=== PATIENT | male | born 1945 | race Caucasian/White ===

== ENCOUNTER 2017-12-28 01:54 | Emergency (ER) | payer MEDICARE, OTHER ==
[2017-12-28 02:19] LABS: Bilirubin Negative (Negative); Blood, Urine Large (Negative); Clarity CLEAR (Clear); Glucose, Urine (Dipstick) Negative (Negative); Leukocyte Negative (Negative); Nitrite Negative (Negative); Protein, Urine (Dipstick) Negative (Neg-Trace); Specific Gravity, Urine 1.021 (1.002-1.036)
[2017-12-28 02:21] LABS: Bacteria/HPF None Seen HPF (None Seen); Hyaline Casts/LPF 0-3 HYALINE CAST LPF (0-3 Hyaline); Pathc Cast-AUWi Flag 0.29 (0-2.49); RBC/HPF GREATER THAN 50-TNTC HPF (0-3); Squamous Epithelial None Seen HPF (0-3); WBC/HPF 0-3 HPF (0-3)
[2017-12-28 02:29] LABS: #Basophils 0.1 thou/uL (0.0-0.2); #Eosinphils 0.3 thou/uL (0.0-0.7); #Lymphocytes 2.4 thou/uL (1.20-3.40); #Monocytes 0.8 thou/uL (0.11-0.59); #Neutrophils 6.1 thou/uL (1.40-6.50); %Basophils 0.6 % (0.0-1.0); %Eosinophils 3.2 % (0.0-10.0); %Lymphocytes 24.5 % (21.0-51.0); %Monocytes 8.3 % (0.0-10.0); %Neutrophils 63.4 % (42.0-75.0); Hemoglobin 16.7 g/dL (14.0-18.0); Mean Corpuscular HGB CONC 32.7 g/dL (32.0-36.0); Mean Corpuscular Hemoglobin 31.1 pg (27.0-31.0); Mean Corpuscular Volume 95.4 fl (80.0-94.0); Mean Platelet Volume 7.8 fL (7.4-10.4); Platelet Count 209 thou/uL (130-400); RBC Distribution Width 12.1 % (11.5-14.5); Red Blood Cell (RBC) Count 5.36 mill/uL (4.70-6.10); White Blood Cell (WBC) Count 9.6 thou/uL (4.8-10.8)
[2017-12-28 02:49] LABS: ALT (SGPT) 68 U/L (8-55); AST (SGOT) 49 U/L (5-34); Albumin 4.1 g/dL (3.4-4.8); Alkaline Phosphatase 85 U/L (40-150); Anion Gap 12 mmol/L (10-20); BUN (Urea Nitrogen) 29 mg/dL (8.4-25.7); Bilirubin, Total 0.6 mg/dL (0.2-1.2); Calc. Creatinine Clearance 0 mL/min (70-130); Calcium 9.8 mg/dL (7.8-10.44); Carbon Dioxide 28 mmol/L (23-31); Chloride 103 mmol/L (98-107); Estimated GFR-MDRD 54; Globulin 3.2 g/dL (2.4-3.5); Glucose 170 mg/dL (80-115); Potassium 4.5 mmol/L (3.5-5.1); Protein, Total 7.3 g/dL (5.8-8.1); Sodium 138 mmol/L (136-145)
[2017-12-28] MEDS ORDERED: Morphine 4 MG/ML VIAL ONE (03:15)
[2017-12-28] MEDS ORDERED: Ondansetron HCl/PF 4 MG/2 ML Vial ONE (03:16)
[2017-12-28] MEDS ORDERED: Ketorolac Tromethamine 30 MG/ML VIAL ONE (04:21)
--- NOTE | 2017-12-28 08:47 | CT ---
PRELIMINARY REPORT/[facility]/EMERGENCY AFTER HOURS PROCEDURE: EXAM: CT Abdomen and Pelvis Without Intravenous Contrast EXAM DATE/TIME: Exam ordered 12/28/2017 3:55 AM CLINICAL HISTORY: 72 years old, male; Pain; Abdominal pain; Flank; Right; Patient HX: 72 yo f. Pt presents with right s ided pain onset 2200 last night while getting ready to bed. Reports sudden onset and was constant. HX of kidney stones in 1999 but that pain was intermittent then and pain today is constant. States that he has had some ruq abdominal pain for a while, last imaging done recently showed fatty liver. Repor ts nausea but denies fever. TECHNIQUE: Axial computed tomography images of the abdomen and pelvis without intravenous contrast. Coronal reformatted images were created and reviewed. COMPARISON: No relevant prior studies available. FINDINGS: Lower thorax: There is subpleural atelectasis of the dependent portions of the lungs. ABDOMEN: Liver: There is a diffuse decrease in hepatic parenchymal density, consistent with fatty infiltration . Gallbladder and bile ducts: The gallbladder is normal. There is no evidence of biliary ductal dilatio n. No calcified stones. Pancreas: The pancreas appears normal. No ductal dilation. Spleen: The spleen is normal. Adrenals: The adrenal glands are normal. Kidneys and ureters: There is a 4 x 5 x 3 mm proximal RIGHT ureteral obstructing calculus with associ ated moderate RIGHT hydronephrosis and perinephric stranding. There are nonobstructing LEFT renal pel abelardo calculi. There is a simple cyst in the left kidney. Additional nonobstructing RIGHT renal pelvic calculi are present. Stomach and bowel: The stomach is normal. The duodenum is unremarkable. The colon is normal. No obstruction. No mucosal thickening. Appendix: A normal appendix is identified. PELVIS: Bladder: The bladder is normal. No stones. Reproductive: The prostate gland and seminal vesicles are normal. ABDOMEN and PELVIS: Intraperitoneal space: Normal. No free air. No significant fluid collection. Bones/joints: No acute fracture. No dislocation. Soft tissues: Normal. Vasculature: Normal. No abdominal aortic aneurysm. Lymph nodes: Normal. No enlarged lymph nodes. IMPRESSION: There is a 4 x 5 x 3 mm proximal RIGHT ureteral obstructing calculus with associated moderate RIGHT h ydronephrosis and perinephric stranding. Thank you for allowing us to participate in the care of your patient. Dictated and Authenticated by: Akshat Sparrow MD 12/28/2017 5:10 AM Central Time ([place] & [place]) FINAL REPORT CT ABDOMEN AND PELVIS WITHOUT CONTRAST STONE PROTOCOL: HISTORY: Abdominal pain. COMPARISON: None. FINDINGS/IMPRESSION: The findings and impression are concordant with the preliminary report. There are also nonobstructiv e left-sided renal calculi measuring up to 4 mm. POS: [facility]
== END 2017-12-28 05:40 | disposition home or self-care (01) ==
LOC: ERS 01:54
DX: N13.2 Hydronephrosis with renal and ureteral calculous obstruction (principal); R74.0 Nonspecific elevation of levels of transaminase and lactic acid dehydrogenase [LDH]
CPT/HCPCS: 36415; 74176; 80053; 81003; 81015; 83690; 85025; 87086; 96361; 96374; 96375; J1885; J2270; J2405

== ENCOUNTER 2018-01-17 06:46 | Outpatient (CLI) | payer MEDICARE, OTHER | END 2018-01-17 06:47 | disposition home or self-care (01) | LOC: BICULT 06:46 | PROVIDERS: ATTEND Urology | DX: N20.2 Calculus of kidney with calculus of ureter (principal) | CPT/HCPCS: 74018; 76770 ==

== ENCOUNTER 2018-01-31 08:20 | Outpatient (CLI) | payer MEDICARE, OTHER | END 2018-01-31 08:21 | disposition home or self-care (01) | LOC: BICRAD 08:20 | PROVIDERS: ATTEND Urology | DX: N20.2 Calculus of kidney with calculus of ureter (principal) | CPT/HCPCS: 74018 ==

== ENCOUNTER 2018-02-09 12:25 | Outpatient (CLI) | payer MEDICARE, OTHER | END 2018-02-09 12:26 | disposition home or self-care (01) | LOC: BICCT 12:25 | PROVIDERS: ATTEND Urology | DX: N20.2 Calculus of kidney with calculus of ureter (principal) | CPT/HCPCS: 74176 ==

== ENCOUNTER 2018-08-15 12:11 | Outpatient (CLI) | payer MEDICARE, OTHER ==
--- NOTE | 2018-08-15 18:04 | RAD ---
KUB: 08/15/18 COMPARISON: CT abdomen/pelvis 02/09/18. HISTORY: Renal stones. FINDINGS: A single view of the abdomen shows small calcifications in the lower pole of both kidneys measuring u p to 4 mm in size. No calcifications are seen along the course of the ureters. There is a nonobstruct rocío bowel gas pattern. IMPRESSION: Bilateral nephrolithiasis. POS: [facility]
== END 2018-08-15 12:12 | disposition home or self-care (01) ==
LOC: RAD 12:11
PROVIDERS: ATTEND Urology
DX: N20.0 Calculus of kidney (principal); Z12.5 Encounter for screening for malignant neoplasm of prostate; N40.1 Benign prostatic hyperplasia with lower urinary tract symptoms; R39.11 Hesitancy of micturition; Z87.442 Personal history of urinary calculi
CPT/HCPCS: 74018; 80048; 81001; 83970; 84550; 87086; G0103; 36415

== ENCOUNTER 2019-01-04 10:02 | Emergency (ER) | payer MEDICARE, OTHER ==
--- NOTE | 2019-01-04 10:41 | RAD ---
SINGLE VIEW OF THE CHEST: Comparison: None. History: Dyspnea. FINDINGS: Single view of the chest shows a normal sized cardiomediastinal silhouette. There is no evidence of c onsolidation, mass, or pleural effusion. The bones are unremarkable. IMPRESSION: No evidence of acute cardiopulmonary disease. POS: [facility]
[2019-01-04] MEDS ORDERED: Azithromycin 250 MG TAB ONE ×2 (10:55→11:05)
[2019-01-04] MEDS ORDERED: methylPREDNISolone Sod Succ/PF 125 MG/2 ML VIAL ONE (10:55)
[2019-01-04 11:22] LABS: #Basophils 0.1 thou/uL (0.0-0.2); #Eosinphils 0.4 thou/uL (0.0-0.7); #Lymphocytes 1.3 thou/uL (1.20-3.40); #Monocytes 1.1 thou/uL (0.11-0.59); #Neutrophils 6.2 thou/uL (1.40-6.50); %Basophils 0.6 % (0.0-1.0); %Lymphocytes 14.1 % (21.0-51.0); %Monocytes 12.3 % (0.0-10.0); Hemoglobin 16.4 g/dL (14.0-18.0); Mean Corpuscular HGB CONC 31.6 g/dL (32.0-36.0); Mean Corpuscular Hemoglobin 30.2 pg (27.0-31.0); Mean Corpuscular Volume 95.5 fL (78.0-98.0); Mean Platelet Volume 7.9 fL (7.4-10.4); Platelet Count 199 thou/uL (130-400); RBC Distribution Width 12.3 % (11.5-14.5); Red Blood Cell (RBC) Count 5.44 mill/uL (4.70-6.10); White Blood Cell (WBC) Count 8.9 thou/uL (4.8-10.8)
[2019-01-04 12:18] LABS: ALT (SGPT) 49 U/L (8-55); AST (SGOT) 35 U/L (5-34); Alkaline Phosphatase 83 U/L (40-150); Anion Gap 12 mmol/L (10-20); BUN (Urea Nitrogen) 18 mg/dL (8.4-25.7); Bilirubin, Total 0.8 mg/dL (0.2-1.2); Calc. Creatinine Clearance 0 mL/min (70-130); Calcium 9.6 mg/dL (7.8-10.44); Carbon Dioxide 25 mmol/L (23-31); Chloride 105 mmol/L (98-107); Estimated GFR-MDRD 76; Globulin 3.4 g/dL (2.4-3.5); Glucose 132 mg/dL (83-110); Protein, Total 7.4 g/dL (5.8-8.1); Sodium 138 mmol/L (136-145)
== END 2019-01-04 13:25 | disposition home or self-care (01) ==
LOC: ERS 10:02
DX: J20.9 Acute bronchitis, unspecified (principal); Z79.01 Long term (current) use of anticoagulants; Z79.899 Other long term (current) drug therapy
CPT/HCPCS: 71045; 80053; 83880; 84484; 85025; 93005; 94640; 96374; J2930; J7620

== ENCOUNTER 2019-01-23 09:23 | Outpatient (CLI) | payer MEDICARE, OTHER ==
--- NOTE | 2019-01-23 10:21 | ULT ---
BILATERAL RENAL ULTRASOUND: HISTORY: Renal calculus. FINDINGS: Correlation is made with a CT scan of the abdomen and pelvis of 02/09/2018. The right kidney measures 10.3 cm in length and the left kidney measures 11.4 cm in length. There is a 1.1 cm cyst in the left kidney. Multiple echogenic foci, somewhat shadowing, are seen in the kidn eys on either side consistent with calculi. Bilateral ureteral jets are present. The prevoid bladde r volume measures 267 cc and postvoid residual of 41 cc. IMPRESSION: 1. Nonobstructing bilateral renal calculi. 2. Left renal cyst. POS: [facility]
--- NOTE | 2019-01-23 11:14 | RAD ---
Supine abdomen: INDICATIONS: Renal calculi. COMPARISON: 08/15/2018 Bowel gas pattern unremarkable. Bowel content obscures the renal outlines. Tiny calcific density over lying lower pole both kidneys appear unchanged. Metallic fasteners overlie the abdomen indicating prior anterior abdominal wall repair since prior study. IMPRESSION: Bowel content obscures renal outlines. Tiny calculi overlying the lower pole both kidneys appear stable.
== END 2019-01-23 09:24 | disposition home or self-care (01) ==
LOC: BICULT 09:23
PROVIDERS: ATTEND Urology
DX: N20.0 Calculus of kidney (principal); N28.1 Cyst of kidney, acquired
CPT/HCPCS: 74018; 76770

== ENCOUNTER 2019-04-24 13:49 | Outpatient (CLI) | payer MEDICARE, OTHER ==
--- NOTE | 2019-04-24 14:45 | CT ---
EXAM: ABDOMEN AND PELVIC CT SCAN WITHOUT IV CONTRAST: 04/24/19 HISTORY: History of stones. Renal and bladder calculi. Prior hernia repair. COMPARISON: 12/28/17. FINDINGS: The lung bases are clear. Fatty changes in the liver. Gallbladder, pancreas, spleen, adrenal glands a re unremarkable. Nonobstructing bilateral renal calculi. At the level of the left ureterovesicular ju nction, there is an irregular calculus measuring 0.5 x 1.0 cml without evidence for hydronephrosis or evidence for left sided obstruction. No evidence for acute appendicitis. No abscess, adenopathy, abn ormal fluid collection or other acute process. No evidence for large or small bowel obstruction. IMPRESSION: Irregular calculus at the ureterovesicular junction but without evidence for hydroureteronephrosis. N onobstructing bilateral renal calculi. Multilevel lumbar spinal canal stenosis. Fatty changes in the liver. POS: [facility]
== END 2019-04-24 13:50 | disposition home or self-care (01) ==
LOC: BICCT 13:49
PROVIDERS: ATTEND Urology
DX: Z12.5 Encounter for screening for malignant neoplasm of prostate (principal); N21.0 Calculus in bladder; R39.11 Hesitancy of micturition; N40.1 Benign prostatic hyperplasia with lower urinary tract symptoms; N20.2 Calculus of kidney with calculus of ureter; M48.061 Spinal stenosis, lumbar region without neurogenic claudication; K76.0 Fatty (change of) liver, not elsewhere classified
CPT/HCPCS: 36415; 74176; 81001; G0103

== ENCOUNTER 2019-06-05 10:30 | Outpatient (CLI) | payer MEDICARE, OTHER ==
[2019-06-05 14:05] LABS: Hemoglobin 17.2 g/dL (14.0-18.0); Mean Corpuscular HGB CONC 32.9 g/dL (32.0-36.0); Mean Corpuscular Hemoglobin 31.2 pg (27.0-31.0); Mean Corpuscular Volume 94.9 fL (78.0-98.0); Mean Platelet Volume 8.5 fL (7.4-10.4); Platelet Count 178 thou/uL (130-400); RBC Distribution Width 12.1 % (11.5-14.5); Red Blood Cell (RBC) Count 5.51 mill/uL (4.70-6.10); White Blood Cell (WBC) Count 9.8 thou/uL (4.8-10.8)
[2019-06-05 14:11] LABS: PTT 31.1 SEC (22.9-36.1); Prothrombin Time 13.2 SEC (12.0-14.7)
[2019-06-05 14:35] LABS: Anion Gap 10 mmol/L (10-20); BUN (Urea Nitrogen) 28 mg/dL (8.4-25.7); Calc. Creatinine Clearance 0 mL/min (70-130); Calcium 9.7 mg/dL (7.8-10.44); Carbon Dioxide 26 mmol/L (23-31); Chloride 105 mmol/L (98-107); Estimated GFR-MDRD 69; Glucose 88 mg/dL (83-110); Potassium 4.3 mmol/L (3.5-5.1); Sodium 137 mmol/L (136-145)
== END 2019-06-05 10:31 | disposition home or self-care (01) ==
LOC: LABBT 10:30
PROVIDERS: ATTEND Urology
DX: Z01.812 Encounter for preprocedural laboratory examination (principal); Z12.5 Encounter for screening for malignant neoplasm of prostate; N20.0 Calculus of kidney; N40.1 Benign prostatic hyperplasia with lower urinary tract symptoms; I82.401 Acute embolism and thrombosis of unspecified deep veins of right lower extremity; Z79.01 Long term (current) use of anticoagulants
CPT/HCPCS: 80048; 85027; 85610; 85730

== ENCOUNTER 2019-06-13 08:40 | Observation (INO) | payer MEDICARE, OTHER ==
[2019-06-05 13:12] VITALS: BMI 33.7
[2019-06-13] MEDS ORDERED: Levofloxacin 500 mg/D5W 100 ml Premix Bag ONE (10:10)
[2019-06-13] MEDS ORDERED: Fentanyl 100 MCG/2 ML VIAL ONE (11:11)
[2019-06-13] MEDS ORDERED: PROPOFOL 200 MG/20 ML VIAL ONE (12:41)
[2019-06-13] MEDS ORDERED: Dexamethasone 20 MG/5 ML VIAL ONE (12:41)
[2019-06-13] MEDS ORDERED: Ondansetron PF 4 MG/2 ML Vial ONE (12:41)
[2019-06-13] MEDS ORDERED: Ketorolac Tromethamine 30 MG/ML VIAL ONE (12:41)
[2019-06-13] MEDS ORDERED: Lidocaine 1% PF 5 ML VIAL ONE (12:41)
[2019-06-13] MEDS ORDERED: Phenazopyridine HCl 97.5 MG TABLET ONE (13:49)
[2019-06-13] MEDS ORDERED: Phenazopyridine HCl 97.5 MG TABLET PO PRN (15:22)
[2019-06-13] MEDS ORDERED: Morphine 4 MG/ML VIAL SLOW IVP PRN (15:22)
[2019-06-13] MEDS ORDERED: Oxybutynin 5 MG TAB PO PRN (15:22)
[2019-06-13] MEDS ORDERED: HYDROcodone/Acetaminophen 5/325 mg Tablet PO PRN ×2 (15:22)
[2019-06-13] MEDS ORDERED: Morphine 2 MG/ML SYRINGE SLOW IVP PRN (15:22)
[2019-06-13] MEDS ORDERED: Acetaminophen 500 MG TAB PO PRN (15:22)
[2019-06-13] MEDS ORDERED: Mag-Al 1200 mg/1200 mg/30 ML UDCUP PO PRN (15:22)
[2019-06-13] MEDS ORDERED: Ondansetron PF 4 MG/2 ML Vial IVP PRN (15:22)
[2019-06-13] MEDS ORDERED: hydrALAZINE 20 MG/ML VIAL SLOW IVP PRN ×2 (15:22)
[2019-06-13] MEDS ORDERED: diphenhydrAMINE 50 MG/ML VIAL IVP PRN (15:22)
[2019-06-13] MEDS ORDERED: Bisacodyl 10 MG SUPP PR PRN (15:22)
[2019-06-13] MEDS ORDERED: Temazepam 15 MG CAP PO PRN (15:25)
[2019-06-13 15:26] LABS: #Eosinphils 0.2 thou/uL (0.0-0.7); #Lymphocytes 1.2 thou/uL (1.20-3.40); #Monocytes 0.2 thou/uL (0.11-0.59); #Neutrophils 5.2 thou/uL (1.40-6.50); %Basophils 0.6 % (0.0-1.0); %Eosinophils 3.4 % (0.0-10.0); %Lymphocytes 17.1 % (21.0-51.0); %Monocytes 2.8 % (0.0-10.0); %Neutrophils 76.1 % (42.0-75.0); Mean Corpuscular HGB CONC 32.6 g/dL (32.0-36.0); Mean Corpuscular Hemoglobin 31.1 pg (27.0-31.0); Mean Corpuscular Volume 95.4 fL (78.0-98.0); Mean Platelet Volume 8.8 fL (7.4-10.4); Platelet Count 176 thou/uL (130-400); RBC Distribution Width 12.2 % (11.5-14.5); Red Blood Cell (RBC) Count 5.45 mill/uL (4.70-6.10); White Blood Cell (WBC) Count 6.9 thou/uL (4.8-10.8)
[2019-06-13] MEDS ORDERED: Promethazine HCl 25 MG/ML VIAL IM/IV PRN (15:59)
[2019-06-13] MEDS ORDERED: Ondansetron HCl/PF 4 MG/2 ML Vial IVP PRN (15:59)
[2019-06-13] MEDS: Sodium Chloride 0.9% 1,000 ML IV SCH (18:06)
[2019-06-13] MEDS: Famotidine/PF 20 mg/2ml Vial SLOW IVP SCH (20:46)
[2019-06-13] MEDS: Docusate 100 MG CAP PO SCH (20:46)
[2019-06-13] MEDS ORDERED: Pramipexole Di-HCl 0.25 MG TAB PO SCH (21:00)
[2019-06-13] MEDS ORDERED: Tamsulosin HCl 0.4 MG CAP PO SCH (21:00)
--- NOTE | 2019-06-13 21:00 | OP ---
DATE OF PROCEDURE: 06/13/2019 PREOPERATIVE DIAGNOSES: 1. A 74-year-old male with history of bladder stone measuring [address] 2. History of BPH with obstructive urinary symptoms. 3. History of recurrent kidney stone. POSTOPERATIVE DIAGNOSES: 1. A 74-year-old male with history of bladder stone measuring [address] 2. History of BPH with obstructive urinary symptoms. 3. History of recurrent kidney stone. PROCEDURES PERFORMED: Cystoscopy, laser lithotripsy of bladder stone, evacuation of stone fragments, and UroLift implant x7. ANESTHESIA: LMA. COMPLICATIONS: None apparent. DISPOSITION: To recovery room in stable condition with 18-Mozambican 10 mL Wolff catheter to leg bag. SPECIMENS: Stone for chemical analysis. INDICATIONS FOR PROCEDURE AND HISTORY: Mr. Triana is a pleasant 74-year-old male with history of recurrent kidney stone. CT demonstrating stable bilateral nonobstructing renal calculi on observation. They were small, therefore, on observation. He does have a history of 1 cm bladder stone on CT confirmed on cystoscopy. He has bilobar hyperplasia of the prostate with prostate volume study demonstrating volume of 55 g and he presents today for UroLift procedure and laser lithotripsy. Risks and complications of procedure were reviewed with him in detail including, but not limited to, bleeding, pain, infection, injury to adjacent organs, urosepsis, possible migration of UroLift implant resulting in incrustation, bladder and urethral stone, chronic pain, injury to adjacent structures, and stricture formation. All questions answered to his satisfaction and desired to proceed. INTRAOPERATIVE FINDINGS: 1. Nonobstructing wide caliber bulbar stricture, not appreciated on local cystoscopy present today, not warranting treatment. 2. Bilobar hyperplasia of the prostate. 3. Bladder stone spiculated. DESCRIPTION OF PROCEDURE: The patient was taken to the operating room, placed in a dorsal lithotomy position with the genital area prepped and draped in the usual surgical sterile fashion. We staged the urethra and the bladder with a standard 21-Mozambican 30- and 70-degree lens cystoscope, which demonstrated no evidence of bladder tumor. The UOs are about 3 to 4 mm proximal to the bladder neck. A spiculated stone is seen in the dependent portion of the trigone. Bilobar hyperplasia of the prostate was noted with high median bar. At this time, we performed laser lithotripsy of the bladder stone first using 550 micron laser fiber at dust setting fragmented and these were fragmented into multiple small pieces, which were retrieved with endoscopic forceps atraumatically. At the end of the procedure what remained in the bladder were tiny dustlike stone debris, which he should be able to urinate without significant issues. At this time, we placed a 20-Mozambican 0-degree UroLift cystoscope. We staged the urethra again. We deployed a left lateral implant first invaginating the obstructing lateral lobe and it was deployed atraumatically, resulting in resolution of his left lateral lobe. We then systematically deployed on the contralateral side as well, and total of 7 UroLift implants were performed. One of the implants near the bladder neck on the right side was too close to the bladder neck. Therefore, decision was made to remove the implant. The urethral tab was removed with endoscopic graspers, therefore, removing it intact atraumatically. We subsequently replaced UroLift in the right base lateral lobe to avoid recurrence of the tab to close to the bladder neck. We engaged the UroLift device further more distally and this did deploy in a good position sparing the bladder neck, with resolution of the right lateral obstructing lobe. Of note, there was a residual obstructing lateral lobe on the left side near the base. Care was taken to reduce this obstructing residual lobe, and we deployed the UroLift implant by making sure that we were not near the bladder neck, however, reducing the obstructive component. This was performed successfully without evidence of deployment in the bladder or near the bladder neck. This did not resolve and improve his outlet, with wide bladder neck channel anteriorly. The bladder was inspected with the 30 and a 70-degree lens, subsequently which demonstrated no evidence of foreign body or deployment of the implant in the bladder neck region or bladder mucosa side. He tolerated the procedure well. I did place an 18-Mozambican Wolff catheter, which passed without difficulty with 10 mL. Anticipate the patient to be discharged with indwelling Wolff catheter overnight, and we will perform a voiding trial tomorrow morning. He is discharged with ciprofloxacin 500 mg for 7 days and Azo p.r.n. Job ID: [id number] [facility]
[2019-06-14] MEDS: Sodium Chloride 0.9% 1,000 ML IV SCH (04:32)
[2019-06-14 05:38] LABS: #Lymphocytes 1.3 thou/uL (1.20-3.40); #Neutrophils 12.9 thou/uL (1.40-6.50); %Basophils 0.2 % (0.0-1.0); %Eosinophils 0.2 % (0.0-10.0); %Lymphocytes 8.2 % (21.0-51.0); %Monocytes 6.6 % (0.0-10.0); %Neutrophils 84.8 % (42.0-75.0); Hemoglobin 16.5 g/dL (14.0-18.0); Mean Corpuscular HGB CONC 32.1 g/dL (32.0-36.0); Mean Corpuscular Hemoglobin 30.9 pg (27.0-31.0); Mean Corpuscular Volume 96.2 fL (78.0-98.0); Mean Platelet Volume 8.8 fL (7.4-10.4); Platelet Count 192 thou/uL (130-400); RBC Distribution Width 12.4 % (11.5-14.5); Red Blood Cell (RBC) Count 5.33 mill/uL (4.70-6.10); White Blood Cell (WBC) Count 15.2 thou/uL (4.8-10.8)
[2019-06-14 05:54] LABS: Anion Gap 10 mmol/L (10-20); BUN (Urea Nitrogen) 18 mg/dL (8.4-25.7); Calc. Creatinine Clearance 105 mL/min (70-130); Calcium 9.1 mg/dL (7.8-10.44); Carbon Dioxide 25 mmol/L (23-31); Chloride 108 mmol/L (98-107); Estimated GFR-MDRD 77; Glucose 145 mg/dL (83-110); Potassium 4.6 mmol/L (3.5-5.1); Sodium 138 mmol/L (136-145)
[2019-06-14] MEDS: Famotidine/PF 20 mg/2ml Vial SLOW IVP SCH (08:49)
[2019-06-14] MEDS: Docusate 100 MG CAP PO SCH (08:49)
[2019-06-14] MEDS ORDERED: Dutasteride 0.5 MG CAP PO SCH (09:00)
[2019-06-14] MEDS ORDERED: Tamsulosin HCl 0.4 MG CAP PO SCH (09:00)
[2019-06-14 11:27] VITALS: BP 121/72; TEMP 97.8
[2019-06-14] MEDS ORDERED: Prevnar 13-Val Conj/PF 0.5 ML SYRINGE IM ONE (17:15)
--- NOTE | 2019-06-15 02:18 | DIS ---
DATE OF ADMISSION: 06/13/2019 DATE OF DISCHARGE: 06/14/2019 DISPOSITION: Home to self-care. BRIEF HOSPITAL COURSE: Mr. Triana is a 74-year-old male with history of bladder stone and BPH, underwent laser lithotripsy of bladder stone and UroLift. The patient was kept overnight, due to hematuria. He was monitored with CBI overnight and held this morning. Urine output is walter clear. Voiding trial initiated. He underwent successful voiding trial, urine output pink tinged, no significant PVR minimal. H&H stable, discharge uneventfully. DISCHARGE INSTRUCTIONS: No heavy lifting or strenuous activity. He is discharged with ciprofloxacin for 7 days, Azo p.r.n., resume his Avodart and Flomax, and to hold his aspirin 325 mg until followup appointment. appointment X week for peak flow PVR.. Job ID: [id number] [facility]
[2019-06-19 16:09] LABS: CA Oxalate Monohydrate 90 % (.); Color Brown (.)
== END 2019-06-14 14:28 | disposition home or self-care (01) ==
LOC: SDC 08:40 → SJJU 15:58
PROVIDERS: ADMIT Urology; ATTEND Urology
PROC: 0T7D8DZ Dilation of Urethra with Intraluminal Device, Via Natural or Artificial Opening Endoscopic (ICD-10-PCS; principal; 2019-06-13)
PROC: 0TCB8ZZ Extirpation of Matter from Bladder, Via Natural or Artificial Opening Endoscopic (ICD-10-PCS; 2019-06-13)
DX: N40.1 Benign prostatic hyperplasia with lower urinary tract symptoms (principal); N13.8 Other obstructive and reflux uropathy; R39.11 Hesitancy of micturition; N21.0 Calculus in bladder; N20.0 Calculus of kidney; N35.912 Unspecified bulbous urethral stricture, male; Z86.718 Personal history of other venous thrombosis and embolism; Z79.01 Long term (current) use of anticoagulants; Z79.899 Other long term (current) drug therapy; Z91.013 Allergy to seafood
CPT/HCPCS: 52317; 80048; 82365; 85025 ×2; 88300; 96361 ×2; 96365; 96375; 96376; C1758; C1889; C9740; G0378 ×2; 36415; J1100; J1885; J1956; J2001; J2405; J2704; J3010; S0028

== ENCOUNTER 2020-09-17 15:20 | Outpatient (CLI) | payer MEDICARE, OTHER ==
--- NOTE | 2020-09-17 15:42 | RAD ---
EXAM: Two views chest PROVIDED CLINICAL HISTORY: Bilateral chest pain. COMPARISON: 01/04/2019 FINDINGS: Cardiac silhouette and pulmonary vasculature are within normal limits. The lungs are clear. Degenera tive changes are again seen in the spine. IMPRESSION: No acute cardiopulmonary process.
== END 2020-09-17 15:21 | disposition home or self-care (01) ==
LOC: BICRAD 15:20
PROVIDERS: ATTEND Family Medicine
DX: R07.9 Chest pain, unspecified (principal)
CPT/HCPCS: 36415; 71046; 80053; 82550; 82553; 83735; 84484; 85025; 85379

== ENCOUNTER 2020-09-19 11:35 | Outpatient (CLI) | payer MEDICARE, OTHER ==
[2020-09-19] MEDS ORDERED: Iopamidol 370 76% 100 ML VIAL ONE (11:54)
--- NOTE | 2020-09-19 12:24 | CT ---
CTA CHEST WITH CONTRAST: Date: 09/19/2020 Axial tomograms obtained through chest following angio protocol with multiplanar reconstruction and 3 D postprocessing. INDICATION: Shortness of breath. Elevated D-Dimer. FINDINGS: The pulmonary arteries show adequate enhancement. No evidence of pulmonary embolus identified. Thorac ic aorta is unremarkable with no evidence of dissection or aneurysm. Mediastinum unremarkable with no evidence of adenopathy. The lung sosa are clear. No infiltrate or effusion. There is a small, ill-defined nodule, pleural b ased, posterior right lower lobe, measuring 7.0 mm. Images through the upper abdomen unremarkable. Osseous structures unremarkable with degenerative vazquez ges in the thoracic spine. Prominent anterior and lateral osteophytes are noted. IMPRESSION: 1. No evidence of pulmonary embolus. 2. No acute lung infiltrate or effusion. 3. Nonspecific pleural based nodular opacity in the posterior right lower lobe. Recommend follow-up noncontrast chest CT in [address] POS: [facility]
== END 2020-09-19 11:36 | disposition home or self-care (01) ==
LOC: CT 11:35
PROVIDERS: ATTEND Family Medicine
DX: I26.99 Other pulmonary embolism without acute cor pulmonale (principal); R91.8 Other nonspecific abnormal finding of lung field
CPT/HCPCS: 71275; Q9967